=== PATIENT | male | born 1955 | race Caucasian/White ===

== ENCOUNTER 2022-06-25 08:00 | Outpatient (RCR) | payer MEDICAID, SELFPAY ==
--- NOTE | 2022-06-25 08:40 | HP.OTEVAL_ITS ---
Patient's Visit Information RAQUEL LAINEZ is a 66 year old M, referred to Occupational Therapy by JOE SALGADO, with a diagnosis of lymphedema. Date of Evaluation: 05/10/22 Occupational Therapist: Saray Miller, NATHALIA/Sinan, CHT - Subjective This 66 year old male was seen for OT eval with dx of BLE lymphedema- pt states she has had swelling in LE since he was admitted to [facility]- pt states he has noticed increase swelling in his LE. pt states he blacked out and was admitted in the Hospital and than to [facility]. pt states he tries to keep legs elevated in his recliner- Pt ambulates with large rollator- pt on 6 liters of O2 and this ran out after 20 min- pt then canceled the apt as this facility does not have Oxygen available and pt did not have a back up O2. - Lymphedema (Circumferential Measure) Mid-foot: right 28cm left 28cm Ankle: right 32cm left 32cm Lower calf: right 29cm left 30cm Largest calf: right 42cm left 46cm Below knee: right 40cm left 43cm Lower Exremity Comments: pt demo dry skin. 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 Therapist ed. pt on need of using them until he can get compression socks (20-30mmHg) - therapist ed. pt that he should have compression on his legs daily- off at night- apply lotion 2x a day- perform lymph stimulation ex. 4x a day and self lymph massage 2 x a day- pt was given handouts and demo understanding of self mtg of his lymphedema dx. Rehabilitation Potential: Questionable - Anticipated Interventions Education re Diagnosis, Manual Lymph Drainage, Education re Life-long lymphedema Management, Education re Skin Care and Precautions, Education re Self Massage Techniques, Education re Correct Donning Tech,Care&Wearing Sched Comp Garments, Home Program - Visit Plan TEXT: Thank you for the opportunity to evaluate your patient. For Medicare and Medicare HMO plans, please review the plan of care and approve it. It will need to be FAXED BACK to us at [phone] for Medicare purposes. Please let me know if there are questions or concerns regarding this plan of care. Physician Signature: Date:
--- NOTE | 2022-06-25 08:42 | HP.OTEVAL_ITS ---
Patient's Visit Information RAQUEL LAINEZ is a 66 year old M, referred to Occupational Therapy by JOE SALGADO, with a diagnosis of lymphedema. Date of Evaluation: 05/10/22 Occupational Therapist: Saray Miller, NATHALIA/Sinan, CHT - Subjective This 66 year old male was seen for OT eval with dx of BLE lymphedema- pt states she has had swelling in LE since he was [facility]- pt states he has noticed increase swelling in his LE. pt states he blacked out and was admitted in the Hospital and than to [facility]. pt states he tries to keep legs elevated in his recliner- Pt ambulates with large rollator- pt on 6 liters of O2 and this ran out after 20 min- pt then canceled the apt as this facility does not have Oxygen available and pt did not have a back up O2. - Lymphedema (Circumferential Measure) Mid-foot: right 28cm left 28cm Ankle: right 32cm left 32cm Lower calf: right 29cm left 30cm Largest calf: right 42cm left 46cm Below knee: right 40cm left 43cm Lower Exremity Comments: pt demo dry skin. 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 Therapist ed. pt on need of using them until he can get compression socks (20-30mmHg) - therapist ed. pt that he should have compression on his legs daily- off at night- apply lotion 2x a day- perform lymph stimulation ex. 4x a day and self lymph massage 2 x a day- pt was given handouts and demo understanding of self mtg of his lymphedema dx. Rehabilitation Potential: Questionable - Anticipated Interventions Education re Diagnosis, Manual Lymph Drainage, Education re Life-long lymphedema Management, Education re Skin Care and Precautions, Education re Self Massage Techniques, Education re Correct Donning Tech,Care&Wearing Sched Comp Garments, Home Program - Visit Plan TEXT: Thank you for the opportunity to evaluate your patient. For Medicare and Medicare HMO plans, please review the plan of care and approve it. It will need to be FAXED BACK to us at [phone] for Medicare purposes. Please let me know if there are questions or concerns regarding this plan of care. Physician Signature: Date:
--- NOTE | 2022-11-01 12:45 | HP.OTDCSUM ---
It has been my pleasure to treat RAQUEL Londono LAINEZ under orders from JOE SALGADO, for the diagnosis of lymphedema for a total of 2 visit(s). Please see the following information for a summary of their discharge status. pt seen 2 visits % Improvement: 70 Patient Goals: Learn how to Manage Lymphedema, Learn how to Apply Compression Stockings Demonstrate adequate knowledge of self-massage by 2nd week: Yes Demonstrate adequate knowledge skin care/prec by 2nd week: Yes Demonstrate adequate knowledge therapeutic exercises by d/c: Yes Select approp compression garment w/donning/care/wear by d/c: Yes Voice need to replace compression garment every 4-6mo by dc: Yes Plan: pt to call with questions If there are questions or concerns regarding this patient's occupational therapy, please fell free to call me at [phone]. Thank you for the referral of this patient. Sincerely, Saray Miller, OTR/L, CHT Pt has not been seen since 06/25/22 due to time lapse in services pt d/c at this time.
--- NOTE | 2022-11-01 12:47 | HP.OTDCSUM ---
It has been my pleasure to treat RAQUEL Londono LAINEZ under orders from JOE SALGADO, for the diagnosis of lymphedema for a total of 2 visit(s). Please see the following information for a summary of their discharge status. Patient Goals: Learn how to Manage Lymphedema, Learn how to Apply Compression Stockings Demonstrate adequate knowledge of self-massage by 2nd week: Yes Demonstrate adequate knowledge skin care/prec by 2nd week: Yes Demonstrate adequate knowledge therapeutic exercises by d/c: Yes Select approp compression garment w/donning/care/wear by d/c: Yes Voice need to replace compression garment every 4-6mo by dc: Yes Plan: pt to call with questions- at this time pt has not called or scheduled further apts. due to time lapse in services pt d/c. If there are questions or concerns regarding this patient's occupational therapy, please fell free to call me at [phone]. Thank you for the referral of this patient. Sincerely, Saray Miller, OTR/L, CHT
== END 2022-06-25 19:00 | disposition home or self-care (01) ==
LOC: OT 08:00
PROVIDERS: PCP Internal Medicine
DX: I89.0 Lymphedema, not elsewhere classified (principal)
CPT/HCPCS: 97110; 97165